=== PATIENT | female | born 1965 | race Caucasian/White ===

== ENCOUNTER 2017-03-28 21:37 | Emergency (ER) | payer BC ==
[2017-03-28] MEDS ORDERED: Cyclobenzaprine TAB* 10 MG PO ONE (23:03)
[2017-03-28] MEDS ORDERED: HYDROcodone/ACETAMIN 5-325 MG* 1 TAB PO ONE (23:50)
--- NOTE | 2017-03-28 23:51 | ED ---
Upper Extremity Pain - HPI Summary HPI Summary: 52F presents with right sided rib pain s/p falling on side Wed. she states pain is greatest on the lateral aspect of her ribs. She states it hurts more when she takes a deep breath. She denies any SOB. She has been taking ibuprofen and ice and it has been helping a little. She states she keeps getting moments when her chest wall seems to spasm and her pain becomes intense. She denies any head injury or other injury. She states she fell because she tripped over something in the dark. - History of Current Complaint Chief Complaint: EDChestWallPain Stated Complaint: FALL THU NIGHT/RT SIDE RIB PAIN Time Seen by Provider: 03/28/17 22:45 - Allergies/Home Medications Allergies/Adverse Reactions: Allergies Allergy/AdvReac Type Severity Reaction Status Date / Time No Known Allergies Allergy Verified 01/26/15 09:45 PMH/Surg Hx/FS Hx/Imm Hx Endocrine/Hematology History: Denies: Hx Anticoagulant Therapy Cardiovascular History: Denies: Hx Hypertension Infectious Disease History: No Infectious Disease History: Denies: Traveled Outside the [place] in Last 30 Days - Family History Known Family History: Positive: None Negative: Cardiac Disease - Social History Alcohol Use: Occasionally Substance Use Type: Reports: None Smoking Status (MU): Current Every Day Smoker Review of Systems Negative: Fever Positive: Other - rib pain Negative: Shortness Of Breath, Cough Negative: Abdominal Pain All Other Systems Reviewed And Are Negative: Yes Physical Exam Triage Information Reviewed: Yes Vital Signs On Initial Exam: Initial Vitals Temp Pulse Resp BP Pulse Ox 97.4 F 102 18 122/82 94 03/28/17 21:46 03/28/17 21:46 03/28/17 21:46 03/28/17 21:46 03/28/17 21:46 Vital Signs Reviewed: Yes Appearance: Positive: Well-Appearing Skin: Positive: Warm, Dry Head/Face: Positive: Normal Head/Face Inspection Eyes: Positive: Normal, EOMI, ROLANDO, Conjunctiva Clear ENT: Positive: Normal ENT inspection, Pharynx normal, TMs normal Respiratory/Lung Sounds: Positive: Clear to Auscultation, Breath Sounds Present , Other - tender on lateral aspect of right ribs 5-12 Cardiovascular: Positive: Normal, RRR Abdomen Description: Positive: Nontender, Soft Bowel Sounds: Positive: Present Diagnostics - Vital Signs Vital Signs Temp Pulse Resp BP Pulse Ox 03/28/17 22:06 98 F 82 16 122/82 99 03/28/17 21:46 97.4 F 102 18 122/82 94 - Laboratory Lab Statement: Any lab studies that have been ordered have been reviewed, and results considered in the medical decision making process. - Radiology rib Xray Interpretation: Positive (See Comments) - two rib fracture present Radiology Interpretation Completed By: ED Physician Course/Dx - Course Course Of Treatment: 52F presents with right sided rib pain s/p falling on side Wed. she states pain is greatest on the lateral aspect of her ribs. She states it hurts more when she takes a deep breath. She denies any SOB. She has been taking ibuprofen and ice and it has been helping a little. She states she keeps getting moments when her chest wall seems to spasm and her pain becomes intense. lungs CTA, tender on lateral aspect of right ribs. xray read as me as two rib fracture. patient is requesting muscle relaxer which gave along with pain medication. patient understands and agrees with plan - Diagnoses Differential Diagnosis/HQI/PQRI: Positive: Contusion, Fracture (Closed), Strain Provider Diagnoses: Rib fracture Discharge - Discharge Plan Condition: Good Disposition: HOME Prescriptions: Cyclobenzaprine TAB* [Flexeril 10 MG TAB*] 10 mg PO TID PRN #9 tab PRN Reason: Pain HYDROcodone/ACETAMIN 5-325 MG* [[place] 5-325 TAB*] 1 tab PO Q6H PRN #16 tab MDD 4 PRN Reason: Pain Patient Education Materials: Rib Fracture (ED) Referrals: Marbella Turpin MD [Primary Care Provider] - Additional Instructions: Take deep breath throughout the day Take Ibuprofen or Tylenol for pain every 6 hours, use narcotic for break through pain Take muscle relaxer up to three times a day Caution if take narcotic with muscle relaxer as will make drowsy Follow up with primary care physician within 7 days Return to ED if develop new productive cough, fever, or any new or worsening symptoms
[2017-03-29 00:24] VITALS: BP 110/68
--- NOTE | 2017-03-29 07:22 | RAD ---
INDICATION: Right rib pain. COMPARISON: There are no prior studies available for comparison. TECHNIQUE: 4 views of the right ribs and dual-energy PA views of the chest were obtained. FINDINGS: There are nondisplaced fractures of the right lateral sixth and seventh ribs. The heart is within normal limits in size. The lungs are underinflated with more focal elevation of the right hemidiaphragm. There is a small linear infiltrate at the right lung base most consistent with atelectasis. No pleural effusion or pneumothorax is seen. The results of this exam were called to the emergency department charge nurse Aren. IMPRESSION: NONDISPLACED FRACTURES OF THE RIGHT LATERAL SIXTH AND SEVENTH RIBS.
== END 2017-03-29 00:24 | disposition home or self-care (01) ==
LOC: ED 21:37
DX: S22.31XA Fracture of one rib, right side, initial encounter for closed fracture (principal); R07.81 Pleurodynia; F17.210 Nicotine dependence, cigarettes, uncomplicated; W19.XXXA Unspecified fall, initial encounter; Y93.9 Activity, unspecified; Y92.9 Unspecified place or not applicable
CPT/HCPCS: 99282; A9270-GY

== ENCOUNTER 2019-09-06 14:15 | Emergency (ER) | payer BC ==
[2019-09-06] MEDS ORDERED: Tetan/Diph/Pertus SYR(Tdap)* 0.5 ML SYR(BOOSTRIX) use SYR contains LATEX IM ONE (14:50)
--- NOTE | 2019-09-06 15:20 | ED ---
Laceration/Wound HPI - HPI Summary HPI Summary: This patient is a 54-year-old female presenting to the ED with a laceration to the left medial index finger. She states this occurred this afternoon with an immersion powder blender and pourer. 2 lacerations noted. Minimal blood loss. Patient is endorsing 5/10 pain. Tetanus not up to date. Denies numbness or tingling. Denies any color or temp changes. - History of Current Complaint Stated Complaint: LAC ON LEFT INDEX FINGER PER PT Time Seen by Provider: 09/06/19 14:50 Hx Obtained From: Patient Mechanism of Injury: Sharp/Blunt Trauma Onset/Duration: Sudden Onset Aggravating: Movement Alleviating: Compression Timing: Constant Onset Severity: Mild Current Severity: Mild Pain Intensity: 2 Pain Scale Used: 0-10 Numeric Associated Signs & Symptoms: Negative - Allergy/Home Medications Allergies/Adverse Reactions: Allergies Allergy/AdvReac Type Severity Reaction Status Date / Time meperidine [From Demerol] Allergy See Comment Verified 09/06/19 14:27 PMH/Surg Hx/FS Hx/Imm Hx Previously Healthy: Yes Endocrine/Hematology History: Denies: Hx Anticoagulant Therapy Cardiovascular History: Denies: Hx Hypertension - Cancer History Hx Chemotherapy: No Hx Radiation Therapy: No - Immunization History Hx Pertussis Vaccination: No Immunizations Up to Date: Yes Infectious Disease History: No Infectious Disease History: Denies: Traveled Outside the [place] in Last 30 Days - Family History Known Family History: Positive: None Negative: Cardiac Disease - Social History Occupation: Employed Full-time Lives: With Family Alcohol Use: Occasionally Hx Substance Use: No Substance Use Type: Reports: None Smoking Status (MU): Current Every Day Smoker Review of Systems Negative: Fever, Chills, Fatigue, Skin Diaphoresis Negative: Palpitations, Chest Pain Negative: Shortness Of Breath, Cough Genitourinary: Negative Positive: no symptoms reported, see HPI Negative: Arthralgia, Myalgia Positive: Other - 2 lacerations to the medial distal L finger Neurological: Negative All Other Systems Reviewed And Are Negative: Yes Physical Exam Triage Information Reviewed: Yes Vital Signs On Initial Exam: Initial Vitals Temp Pulse Resp BP Pulse Ox 99.1 F 97 16 124/88 94 09/06/19 14:23 09/06/19 14:23 09/06/19 14:23 09/06/19 14:23 09/06/19 14:23 Vital Signs Reviewed: Yes Appearance: Positive: Well-Appearing, Well-Nourished Skin: Positive: Warm, Skin Color Reflects Adequate Perfusion, Other - 2 lacerations to the medial L distal finger Head/Face: Positive: Normal Head/Face Inspection Eyes: Positive: EOMI, ROLANDO, Conjunctiva Clear Respiratory/Lung Sounds: Positive: Clear to Auscultation, Breath Sounds Present Cardiovascular: Positive: RRR, Pulses are Symmetrical in both Upper and Lower Extremities Musculoskeletal: Positive: Normal, Strength/ROM Intact Neurological: Positive: Speech Normal Psychiatric: Positive: Normal, Affect/Mood Appropriate AVPU Assessment: Alert Procedures - Sedation Patient Received Moderate/Deep Sedation with Procedure: No - Laceration/Wound Repair finger Location: upper extremity Description: Linear Anesthesia: Local Length, Depth and Shape: 1.0 and .5cm, both superficial Betadine Prep?: No Irrigated w/ Saline (ccs): 30 Laceration/Wound Explored: clean Closure: Single Layer - 3 sutures, 1 sutures placed Debridement: minimal Suture Type: Prolene Number of Sutures: 4 Layer Closure?: No Sterile Dressing Applied?: No Diagnostics - Vital Signs Vital Signs Temp Pulse Resp BP Pulse Ox 09/06/19 14:23 99.1 F 97 16 124/88 94 - Laboratory Lab Statement: Any lab studies that have been ordered have been reviewed, and results considered in the medical decision making process. Laceration Repair Course/Dx - Course Course Of Treatment: On physical examination, there are 2 lacerations to the medial portion of the left index finger. Lacerations measure 1 cm in length and the other measuring 0.5 cm in length. This is superficial. Lidocaine without epi used as local anesthetic/digital block with good effect. 3 4-0 sutures placed using prolene to 1.0cm laceration, 1 4-0 sutures placed using prolene to .5cm laceration. Pt tolerated procedure well. Gauze wrapped and follow up in 7 days for suture removal. - Differential Dx Differental Diagnoses: Avulsion, Laceration - Clinical Impression Provider Diagnoses: Laceration of finger Discharge ED - Sign-Out/Discharge Documenting (check all that apply): Patient Departure - Discharge Plan Condition: Stable Disposition: HOME Patient Education Materials: Care For Your Stitches (ED), Laceration (ED) Referrals: Marbella Turpin MD [Primary Care Provider] - Additional Instructions: Please return to the ED or go to [facility] for suture removal in 7 days Leave open to air after 24 hours unless you are working in a dirty environment Wash with soap and water daily - Billing Disposition and Condition Condition: STABLE Disposition: Home
[2019-09-06 15:52] VITALS: BP 146/89
== END 2019-09-06 15:51 | disposition home or self-care (01) ==
LOC: ED 14:15
DX: S61.211A Laceration without foreign body of left index finger without damage to nail, initial encounter (principal); Z23 Encounter for immunization; W29.0XXA Contact with powered kitchen appliance, initial encounter; Y92.9 Unspecified place or not applicable; F17.200 Nicotine dependence, unspecified, uncomplicated; Z88.5 Allergy status to narcotic agent
CPT/HCPCS: 12001; 90471; 90715; 99282